=== PATIENT | female | born 1995 | race Two or more races ===

== ENCOUNTER 2017-09-17 11:53 | Emergency (ER) | payer MEDICAID ==
[~2017-09-17] VITALS: Ht 162.6 cm; Wt 135.2 kg
[2017-09-17 12:35] VITALS: BP 114/57
== END 2017-09-17 13:10 | disposition home or self-care (01) ==
LOC: ER 11:53
DX: H10.9 Unspecified conjunctivitis (principal)

== ENCOUNTER 2017-10-19 23:10 | Emergency (ER) | payer MEDICAID ==
[~2017-10-19] VITALS: Ht 162.6 cm; Wt 112.9 kg
[2017-10-20 00:34] LABS: Urine Blood Negative /uL (Negative); Urine Specific Gravity 1.019 (1.001-1.035)
[2017-10-20 00:35] LABS: Urine WBC 4 /hpf (0 - 5)
[2017-10-20 00:36] LABS: Urine Bacteria 1+ /hpf (None Seen); Urine Mucus FEW (None Seen)
[2017-10-20 02:05] VITALS: BP 128/66
== END 2017-10-20 02:25 | disposition home or self-care (01) ==
LOC: ER 23:13
DX: J04.0 Acute laryngitis (principal); N39.0 Urinary tract infection, site not specified
CPT/HCPCS: 81001; 81025

== ENCOUNTER 2018-03-17 21:06 | Emergency (ER) | payer MEDICAID ==
[~2018-03-17] VITALS: Ht 162.6 cm; Wt 110.2 kg
[2018-03-17 22:08] VITALS: BP 127/79
[2018-03-17 22:22] LABS: Urine Bacteria NONE SEEN /hpf (None Seen); Urine Blood Negative /uL (Negative); Urine Mucus FEW (None Seen); Urine Specific Gravity 1.027 (1.001-1.035); Urine WBC 72 /hpf (0 - 5)
[2018-03-17 23:01] LABS: Basophils # (auto) 0 uL; Basophils % (auto) 0.5 % (0.0-2.0); Eosinophils # (auto) 0.3 uL; Eosinophils % (auto) 3.3 % (0.0-7.0); Hematocrit 35.4 % (36.0-46.0); Hemoglobin 11.6 g/dL (12.2-16.2); Lymphocytes # (auto) 3.7 uL; Lymphocytes % (auto) 39.1 % (10.0-50.0); Mean Corpuscular Hemoglobin 27.2 pg (28.0-32.0); Mean Corpuscular Hgb Conc. 32.8 g/dL (32.0-36.0); Mean Corpuscular Volume 82.9 fL (80.0-100.0); Monocytes # (auto) 0.4 uL; Monocytes % (auto) 4.7 % (0.0-12.0); Neutrophils # (auto) 4.9 uL; Neutrophils % (auto) 52.4 % (37.0-80.0); Nucleated Red Blood Cells % 0.1 %; Platelet Count (auto) 365 10^3/uL (140-450); Red Blood Cells 4.27 10^6/uL (4.0-5.20); Red Cell Distribution Width 13.9 % (11.8-14.3); White Blood Cell 9.5 10^3/uL (4.4-10.8)
[2018-03-17 23:25] LABS: Calcium 8.7 mg/dL (8.5-10.1); Potassium 3.4 mmol/L (3.5-5.1)
[2018-03-17 23:27] LABS: BUN/Creatinine Ratio 12.7
[2018-03-17 23:30] LABS: Bilirubin, Total 0.2 mg/dL (0.2-1.0); Total Protein 6.6 g/dL (6.4-8.2)
== END 2018-03-18 03:34 | disposition left against medical advice (07) ==
LOC: ER 21:06
DX: N93.9 Abnormal uterine and vaginal bleeding, unspecified (principal); Z53.21 Procedure and treatment not carried out due to patient leaving prior to being seen by health care provider
CPT/HCPCS: 36415; 80053; 81001; 84702; 85025

== ENCOUNTER 2018-08-10 14:03 | Emergency (ER) | payer MEDICAID ==
[~2018-08-10] VITALS: Ht 160 cm; Wt 115.2 kg
[2018-08-10 14:49] VITALS: BP 126/63
[2018-08-10] MEDS ORDERED: diphenhdrAMINE HCL 25 MG CAP PO ONE (15:00)
[2018-08-10] MEDS ORDERED: diphenhdrAMINE HCL 50 MG/1 ML VL IM ONE (15:00)
== END 2018-08-10 15:49 | disposition home or self-care (01) ==
LOC: ER 14:05
DX: O26.893 Other specified pregnancy related conditions, third trimester (principal); R21 Rash and other nonspecific skin eruption; Z3A.32 32 weeks gestation of pregnancy

== ENCOUNTER 2024-10-02 22:54 | Emergency (ER) | payer MEDICAID ==
[~2024-10-02] VITALS: Ht 162.6 cm; Wt 145.2 kg
[2024-10-02 23:33] VITALS: BP 127/75; PULSE 75; RESP 24; O2SAT 95
== END 2024-10-03 03:44 | disposition left against medical advice (07) ==
LOC: ER 22:54
DX: R05.9 Cough, unspecified (principal); R09.81 Nasal congestion; J02.9 Acute pharyngitis, unspecified; M79.10 Myalgia, unspecified site; Z53.21 Procedure and treatment not carried out due to patient leaving prior to being seen by health care provider